=== PATIENT | female | born 1975 | race Caucasian/White ===

== ENCOUNTER 2019-05-17 14:29 | Inpatient (IN) | payer OTHER ==
[~2019-05-17] VITALS: Ht 175.3 cm; Wt 72.6 kg
[~2019-05-17 14:29] MED LIST: ALBUTEROL; BUPR150T12 PO; PROVENTIL; SINGULAIR
[2019-05-17 14:46] VITALS: BP 118/67
--- NOTE | 2019-05-17 14:55 | NUR ---
44 Y/O F PRESENTS TO ER C/O SHORTNESS OF BREATH SINCE SATURDAY. PT WAS SEEN AT URGENT CARE ON 05/07/19 WAS WAS PRESCRIBED ANTIBIOTICS AND BREATHING TREATMENTS. PER PT SHE HAS BEEN USING HER ALBUTEROL INHALER Q 30 MIN AND NEBULIZER TX WITHOUT ANY RELIEF. PT RESPIRATIONS ARE EVEN AND LABORED. BREATHE SOUNDS BILATERALLY WHEEZING THROUGHOUT WITH DRY COUGH. PT O2 SATURATION 99% ON RA. ALLERGIES: NKA. MED HX: ASTHMA AND SEIZURE DISORDER. SAFETY MEASURES IN PLACE. SEIZURE PRECAUTIONS IMPLEMENTED: HOB ELEVATED, BED IN LOWEST POSITION, PADDED BED RAILS UP X2. ERMD MADE AWARE OF PT STATUS.
--- NOTE | 2019-05-17 14:55 | NUR ---
PT AMB TO BED 8
[2019-05-17] MEDS ORDERED: methylPREDNISolone SS 125 MG/2 ML VIAL IVP ONE (15:20)
[2019-05-17] MEDS ORDERED: ALBUTEROL 0.083% 2.5 MG/3 ML NEBU INH ONE ×2 (15:20)
[2019-05-17] MEDS ORDERED: IPRATROPIUM 0.02% 0.5 MG/2.5 ML NEBU INH ONE (15:20)
--- NOTE | 2019-05-17 15:30 | NUR ---
OUT OF ROOM IN RADIOLOGY CARRIAGE SETTER TOATTEMPT [facility] THERAPY AND RESPIRATORY DRUGS AT A LATER TIME
--- NOTE | 2019-05-17 15:36 | NUR ---
[facility] THERAPY AND RESPIRATORY DRUGS GIVEN ORDERED
[2019-05-17 16:46] LABS: BASOPHILS # (AUTO) 0.1 K/uL (0.00-0.22); BASOPHILS % (AUTO) 0.9 % (0.0-2.0); EOSINOPHILS % (AUTO) 0.3 % (0.0-4.0); HEMATOCRIT 36.8 % (36-48); HEMOGLOBIN 11.9 g/dL (12.0-16.0); LYMPHOCYTES # (AUTO) 1.4 K/uL (2.5-16.5); LYMPHOCYTES % (AUTO) 17.5 % (20.5-51.1); MEAN CORPUSCULAR HEMOGLOBIN 33 pg (27-31); MEAN CORPUSCULAR HGB CONC 32 g/dL (33-37); MEAN CORPUSCULAR VOLUME 101.5 fL (80-94); MONOCYTES # (AUTO) 0.3 K/uL (0.8-1.0); MONOCYTES % (AUTO) 3.7 % (1.7-9.3); NEUTROPHILS # (AUTO) 6.4 K/uL (1.8-7.7); NEUTROPHILS % (AUTO) 77.6 % (42.2-75.2); PLATELET COUNT (AUTO) 416 K/uL (140-450); RED BLOOD CELL COUNT(AUTO) 3.62 MIL/uL (4.20-5.40); RED CELL DISTRIBUTION WIDTH 16.2 % (11.6-13.7); WHITE BLOOD COUNT (AUTO) 8.2 K/uL (4.8-10.8)
[2019-05-17 16:52] LABS: CARBON DIOXIDE 22.9 mmol/L (21-32); CREATININE 0.9 mg/dL (0.6-1.3); POTASSIUM 3.9 mmol/L (3.5-5.1)
--- NOTE | 2019-05-17 17:00 | NUR ---
PT RESTING IN BED. VSS. MOTHER AT BEDSIDE. WILL CONTINUE TO MONITOR.
[2019-05-17] MEDS ORDERED: MONT10TA35 PO ×2 (17:17→19:05)
[2019-05-17] MEDS ORDERED: GABA400C PO (17:17)
[2019-05-17] MEDS ORDERED: QUET25TA PO ×2 (17:17→19:05)
[2019-05-17] MEDS ORDERED: TOPI50TA PO ×2 (17:17→19:05)
[2019-05-17] MEDS ORDERED: QUET300T1 PO ×2 (17:17→19:05)
[2019-05-17] MEDS ORDERED: ACAM333T PO ×2 (17:17→19:05)
[2019-05-17] MEDS ORDERED: ESK300 PO ×2 (17:17→19:05)
[2019-05-17] MEDS ORDERED: BUS5 PO ×2 (17:17→19:05)
[2019-05-17] MEDS ORDERED: LEVE500T9 PO ×2 (17:17→19:05)
[2019-05-17] MEDS ORDERED: ONDANSETRON 4 MG/2 ML VIAL IM/IVP PRN (17:35)
[2019-05-17] MEDS ORDERED: ACETAMINOPHEN 325 MG TAB PO PRN (17:35)
[2019-05-17] MEDS ORDERED: ALBUTEROL SULFATE/IPRATROPIU 3 ML SOL IH PRN (17:35)
[2019-05-17] MEDS ORDERED: MORPHINE SULFATE 2 MG/ML SYR IVP PRN (17:35)
[2019-05-17] MEDS ORDERED: HYDROcodone/APAP 5/325 MG 1 TAB TAB PO PRN (17:35)
--- NOTE | 2019-05-17 17:50 | NUR ---
PT EATING DINNER MEAL PROVIDED BY FOOD AND NUTRITION
[2019-05-17] MEDS ORDERED: ALBUTEROL SULFATE/IPRATROPIU 3 ML SOL IH SCH (18:00)
--- NOTE | 2019-05-17 18:12 | NUR ---
TRANSFER OF CARE AND REPORT GIVEN TO CATIA ESQUIVEL
--- NOTE | 2019-05-17 18:12 | NUR ---
Patient will be admitted to care of DR. MCDONOUGH. Admited to MED SURGE. Will go to room 105A. Belongings list completed. Report to CATIA ESQUIVEL.
[2019-05-17 18:14] LABS: MAGNESIUM 2.1 mg/dL (1.8-2.4); PHOSPHORUS 4.2 mg/dL (2.5-4.9); THYROID STIMULATING HORMONE 1.06 uIU/mL (0.34-3.74)
--- NOTE | 2019-05-17 18:15 | NUR ---
RECEIVED PT FROM ED NURSE CORNELIO. PT IS AWAKE AND ALERT, AMBULATORY AND ABLE TO MAKE NEEDS KNOWN. APPEARS TO BE IN SOME RESPIRATORY DISTRESS, LUNG SOUNDS ARE WHEEZY. NO C/O PAIN. IV SITE IS ON THE R FOOT, 22 G. PT PLACED ON TELEMETRY. RAILS PADDED FOR HX OF SEIZURES. VS UPON ADMIT: BP 110/64, HR 86, O2 93% ON ROOM AIR, TEMP 97.8, RR 20. PT WAS ADVISED TO WEAR A HOSPITAL GOWN, BUT SHE STATES THAT SHE IS UNCOMFORTABLE IN A GOWN. CALL LIGHT GIVEN WITHIN REACH. PT CURRENTLY FINISHING EATING DINNER.
[2019-05-17 18:34] LABS: APPEARANCE,URINE CLEAR (CLEAR); BILIRUBIN,URINE NEGATIVE (NEGATIVE); BLOOD, URINE NEGATIVE (NEGATIVE); COLOR,URINE YELLOW (YELLOW); LEUKOCYTE ESTERASE ,URINE NEGATIVE (NEGATIVE); NITRITE, URINE NEGATIVE (NEGATIVE); PH,URINE 7.5 (5.0-9.0); UGLUCOSE NEGATIVE (NEGATIVE)
--- NOTE | 2019-05-17 18:35 | NUR ---
PT SEEN BY DR FELICIANO
[2019-05-17 18:37] LABS: BARBITURATE, URINE NEG. ng/ml (NEG <=200); BENZODIAZEPINE, URINE NEG. ng/mL (NEG <=200); CANNABINOID, URINE NEG. ng/mL (NEG <=50); COCAINE, URINE NEG. ng/mL (NEG <=300); OPIATE, URINE NEG. ng/mL (NEG <=2000); PHENCYCLIDINE SCREEN,URINE NEG. ng/mL (NEG <=25)
--- NOTE | 2019-05-17 18:40 | NUR ---
PT PLACED ON 2L O2 NC FOR SOB.
[2019-05-17] MEDS ORDERED: ACAMPROSATE CALCIUM 333 MG PO SCH (19:05)
--- NOTE | 2019-05-17 19:28 | NUR ---
PT ENDORSED TO OBSTETRICS TEACHER NURSE IN STABLE CONDITION.
--- NOTE | 2019-05-17 19:29 | NUR ---
RECEIVED BEDSIDE REPORT FORM DAY SHIFT NURSE ALVIN RN, PT STABLE, NO DISTRESS NOTED, IV TO R FOOT 22G, PATENT INTACT, INFUSING WELL PT ON 2LPM O2 VIA NC, PT STATED HAVING TROUBLE BREATHING , RT CALLED, PT O2 SATURATION IS 97% ON 2LPM O2 VIA NC, INITIAL ASSESSMENT DONE, ALL SFAETY PRECAUTION ,MET, CALL LIGHT WITHIN REACH, WILL CONTINUE TO MONITOR.
[2019-05-17 19:42] LABS: PROTHROMBIN TIME 9.3 secs (10.8-13.4)
[2019-05-17 20:00] VITALS: BP 112/73
--- NOTE | 2019-05-17 20:00 | NUR ---
WENT TO CHECK ON PATIENT REGARDING SHORTNESS OF BREATH. PATIENT STABLE AND ALERT NO RESP DISTRESS AT THIS TIME. ABG DONE AND SPUTUM COLLECTED. EKG DONE W CATIA HORNE AT BEDSIDE. ABG RESULTS READ TO DR CHAU. PATIENT FIO2 INCREASE TO 3L NC AND ADJUSTMENTS MADE TO FREQ OF BREATHING TREATMENTS. PATIENT SPO2 98 HEART RATE 76 AT THIS TIME NO RESP DISTRESS NOTICED.
[2019-05-17] MEDS ORDERED: cefTRIAXone 1,000 MG VIAL ONE (20:55)
[2019-05-17] MEDS ORDERED: NON-FORMULARY ITEM (Levetiracetam* (Keppra Xr*) 750 MG) PO SCH (21:00)
[2019-05-17] MEDS: MONTELUKAST SODIUM 10 MG TAB PO SCH (21:06)
[2019-05-17] MEDS: methylPREDNISolone SS 125 MG/2 ML VIAL IVP SCH (21:08)
[2019-05-17] MEDS: NACL 0.9% 1,000 ML IV SCH (21:08)
--- NOTE | 2019-05-17 21:10 | NUR ---
PT PULLED OUT IV WHEN WALKING TO RESTROOM, NEW IV INSERTED TO R WRIST 24G, PATENT INTACT, INFUSING WELL, OLD IV OUT, CATH INTACT. PT RESTING, NO DISTRESS NOTED, CALL LIGHT WITHIN REACH.
[2019-05-17] MEDS: QUEtiapine FUMARATE 100 MG TAB PO SCH (21:32)
[2019-05-17] MEDS: GABAPENTIN 100 MG CAP PO SCH (21:32)
[2019-05-17] MEDS: TOPIRAMATE 25 MG TAB PO SCH (21:33)
[2019-05-17] MEDS: LITHIUM CARBONATE 300 MG TAB PO SCH (21:39)
[2019-05-17] MEDS: busPIRone 5 MG TAB PO SCH (21:40)
--- NOTE | 2019-05-17 21:40 | NUR ---
DUE MEDICATION ADMINISTERED, PT TOLERATED WELL, NO DISTRESS NOTED, CALL LIGHT WITHIN REACH, WILL CONTINUE TO MONITOR.
[2019-05-18] VITALS: BP 101/67
--- NOTE | 2019-05-18 00:09 | NUR ---
CHECKED ON PT, PT SLEEPING, V/S TAKEN, WNL, CALL LIGHT WITHIN REACH, WILL CONTINUE TO MONITOR.
--- NOTE | 2019-05-18 02:29 | NUR ---
PT SLEEPING, NO DISTRESS NOTED, CALL LIGHT WITHIN REACH, WILL CONTINUE TO MONITOR.
[2019-05-18] MEDS ORDERED: LEVE750T3 PO (03:10)
[2019-05-18 04:00] VITALS: BP 122/80
--- NOTE | 2019-05-18 04:20 | NUR ---
CHECKED ON PT, PT SLEEPING, NO DISTRESS NOTED, CALL LIGHT WITHIN REACH, V/S TAKEN, WILL CONTINUE TO MONITOR.
[2019-05-18] MEDS: methylPREDNISolone SS 125 MG/2 ML VIAL IVP SCH ×2 (05:20→13:07)
[2019-05-18 06:54] LABS: BASOPHILS % (AUTO) 0.2 % (0.0-2.0); HEMATOCRIT 39.2 % (36-48); HEMOGLOBIN 12.6 g/dL (12.0-16.0); LYMPHOCYTES % (AUTO) 13.9 % (20.5-51.1); MEAN CORPUSCULAR HEMOGLOBIN 33 pg (27-31); MEAN CORPUSCULAR HGB CONC 32 g/dL (33-37); MEAN CORPUSCULAR VOLUME 101.8 fL (80-94); MONOCYTES # (AUTO) 0.2 K/uL (0.8-1.0); MONOCYTES % (AUTO) 2.6 % (1.7-9.3); NEUTROPHILS # (AUTO) 5.9 K/uL (1.8-7.7); NEUTROPHILS % (AUTO) 83.3 % (42.2-75.2); PLATELET COUNT (AUTO) 449 K/uL (140-450); RED BLOOD CELL COUNT(AUTO) 3.86 MIL/uL (4.20-5.40); RED CELL DISTRIBUTION WIDTH 16.3 % (11.6-13.7); WHITE BLOOD COUNT (AUTO) 7.1 K/uL (4.8-10.8)
--- NOTE | 2019-05-18 07:00 | NUR ---
RECEIVED REPORT FROM PUBLISHER ASSISTANT NURSE. PATIENT IS AWAKE IN BED, SITTING UP. PATIENT IS FULL CODE, ALLERGIES TO NSAIDS AND ASPIRIN. AAOX4, CURRENTLY SATTING 96% ON ROOM AIR. PT HAS AN IV TO RIGHT WRIST 22G WITH NS INFUSING AT 100 ML/HR. PATIENT HAS WHEEZING TO UPPER AND LOWER LOBES. WILL CONTINUE WITH PLAN OF CARE FOR THE DAY
[2019-05-18] MEDS: ALBUTEROL SULFATE/IPRATROPIU 3 ML SOL IH SCH ×4 (07:18→19:51)
[2019-05-18 07:24] LABS: ANION GAP 17.1 (8-16); CARBON DIOXIDE 20.5 mmol/L (21-32); CREATININE 0.7 mg/dL (0.6-1.3); POTASSIUM 4.6 mmol/L (3.5-5.1)
[2019-05-18 07:36] LABS: MAGNESIUM 2.1 mg/dL (1.8-2.4); PHOSPHORUS 4.5 mg/dL (2.5-4.9)
[2019-05-18 07:38] LABS: CHOL/HDL RATIO 2.7 (1-4.5)
[2019-05-18] MEDS: NACL 0.9% 1,000 ML IV SCH ×2 (07:38→14:45)
--- NOTE | 2019-05-18 07:39 | NUR ---
ENDORSED PT TO DAY SHIFT NURSE RENETTA BARDALES, PT STABLE, NO DISTRESS NOTED, CALL LIGHT WITHIN REACH.
[2019-05-18 08:00] VITALS: BP 128/81
[2019-05-18] MEDS ORDERED: ACETYLCYSTEINE 10% (100 MG/ML) 100 MG/ML VIAL INH SCH ×3 (08:00→12:06)
[2019-05-18] MEDS ORDERED: AZITHROMYCIN 250 MG TAB PO SCH (09:00)
--- NOTE | 2019-05-18 09:00 | NUR ---
ADMINISTERED MORNING MEDICATION. PATIENT TOLERATED WELL. PATIENT IS SITTING UP IN BED. NO COMPLAINTS AT THIS TIME.
[2019-05-18] MEDS: LITHIUM CARBONATE 300 MG TAB PO SCH ×3 (09:04→16:18)
[2019-05-18] MEDS: QUEtiapine FUMARATE 25 MG TAB PO SCH (09:04)
[2019-05-18] MEDS: busPIRone 5 MG TAB PO SCH ×3 (09:05→16:18)
[2019-05-18] MEDS: GABAPENTIN 100 MG CAP PO SCH ×4 (09:05→20:39)
[2019-05-18] MEDS: TOPIRAMATE 25 MG TAB PO SCH ×2 (09:06→20:32)
[2019-05-18] MEDS: levETIRAcetam 500 MG TAB PO SCH ×2 (09:06→20:31)
[2019-05-18] MEDS: LACTOBACILLUS RHAMNOSUS GG 1 EACH CAP PO SCH (09:07)
[2019-05-18 12:00] VITALS: BP 116/63
--- NOTE | 2019-05-18 12:23 | NUR ---
PATIENT EXPRESSED UNHAPPINESS WITH HER BREAKFAST THIS MORNING. INFORMED PATIENT THAT I CAN CALL AND ORDER A SANDWICH. PATIENT DENIED AND STATED THAT SHE WANTED TO WALK TO THE [employer] TO PURCHASE FOOD. INFORMED PATIENT THAT UNFORTUNATELY SHE CANNOT LEAVE [facility] WHILE BEING A PATIENT HERE ON THE FLOOR. PATIENT VERBALIZED UNDERSTANDING.
--- NOTE | 2019-05-18 13:19 | NUR ---
PATIENT HAS BEEN SCREENED AND CATEGORIZED LOW NUTRITION RISK. PATIENT WILL BE SEEN WITHIN 7 DAYS OF ADMISSION. 05/24/[address]
--- NOTE | 2019-05-18 14:30 | NUR ---
ADMINISTERED ATIVAN IVP PRN FOR ANXIETY.
[2019-05-18] MEDS ORDERED: LORazepam 2 MG/ML VIAL IM/IVP PRN (14:55)
[2019-05-18 16:00] VITALS: BP 129/79
--- NOTE | 2019-05-18 19:28 | NUR ---
RECEIVED PT FROM AM NURSE RAFITA, PT AWAKE, ALERT ORIENTED X 4, AMBULATORY, NO RESPIRATORY DISTRESS AT THIS TIME. PT HAS NO LINE W/NS 100 ML NOT INFUSING. PER PREVIOUS NURSE, 3X ATTEMPT IV INSERTION DURING THE DAY SHIFT. WILL TRY TO INSERT AN IV LINE. DISCUISSED POC. PLACED ON LOW BED POSITION, CALL LIGHT W/IN REACH WILL KEEP WATCH FOR ASTHMA EXACERBATION
[2019-05-18] MEDS: ACETYLCYSTEINE 10% (100 MG/ML) 100 MG/ML VIAL INH SCH (19:51)
[2019-05-18 20:00] VITALS: BP 121/85
[2019-05-18] MEDS: MONTELUKAST SODIUM 10 MG TAB PO SCH (20:32)
[2019-05-18] MEDS: QUEtiapine FUMARATE 100 MG TAB PO SCH (20:32)
--- NOTE | 2019-05-18 20:40 | NUR ---
ATTEMPTED TO INSERT AN IV LINE BUT FAILED, WILL INFORM DR. MONROE
[2019-05-18] MEDS ORDERED: predniSONE 20 MG TAB PO ONE (20:50)
--- NOTE | 2019-05-18 20:52 | NUR ---
GOT AN ORDER FROM DR. MONROE TO START PO PREDNISONE; AND SEE [place] IF PT STILL HAS NO LINE, PROBABLY DO PICC IF NOT TOLERATING P.O OR IF NOT DISCHARGED Addendum: 05/18/19 at 2115 by Apolonia Reynolds RN AMEND TO JUST ONE TIME DOSE OF ORAL PREDNISONE. WILL STILL CONTINUE THE IV PREDNISONE, IF CAN GET A LINE TONIGHT FOR TOMORROW'S IV PREDNISONE
[2019-05-18] MEDS: methylPREDNISolone SS 40 MG/ML VIAL IVP SCH (21:00)
--- NOTE | 2019-05-18 23:26 | NUR ---
PT SLEEPING AT THIS TIME, PT 02 SAT AT 90% ON RA.ENDORSED TO CHARGE NURSE, ROHIT FOR CONTINUITY OF CARE.
[2019-05-19] VITALS: BP 124/76
--- NOTE | 2019-05-19 00:27 | NUR ---
REPORT RECEIVED FROMRK BARDALES.PT IS IN STABLE CONDITION.HR IS SR.NO C/O PAIN .RESP.UNLABORED IN RA.
[2019-05-19] MEDS: NACL 0.9% 1,000 ML IV SCH (00:45)
[2019-05-19 04:00] VITALS: BP 120/79
--- NOTE | 2019-05-19 04:00 | NUR ---
SLEEPING W/O S/S OF ANY DISTRESS.HR IS SB/SA .WILL MONITOR PT.
[2019-05-19] MEDS: methylPREDNISolone SS 40 MG/ML VIAL IVP SCH (05:00)
[2019-05-19] MEDS: ACETYLCYSTEINE 10% (100 MG/ML) 100 MG/ML VIAL INH SCH (06:49)
[2019-05-19 07:07] LABS: T4 (THYROXINE) 5.4 ug/dL (4.5-12.0)
[2019-05-19 07:15] LABS: BASOPHILS % (AUTO) 0.4 % (0.0-2.0); HEMATOCRIT 37.9 % (36-48); HEMOGLOBIN 12.2 g/dL (12.0-16.0); LYMPHOCYTES # (AUTO) 2.3 K/uL (2.5-16.5); LYMPHOCYTES % (AUTO) 19.4 % (20.5-51.1); MEAN CORPUSCULAR HEMOGLOBIN 33 pg (27-31); MEAN CORPUSCULAR HGB CONC 32 g/dL (33-37); MEAN CORPUSCULAR VOLUME 100.7 fL (80-94); MONOCYTES # (AUTO) 0.5 K/uL (0.8-1.0); MONOCYTES % (AUTO) 4.1 % (1.7-9.3); NEUTROPHILS % (AUTO) 76.1 % (42.2-75.2); PLATELET COUNT (AUTO) 464 K/uL (140-450); RED BLOOD CELL COUNT(AUTO) 3.76 MIL/uL (4.20-5.40); RED CELL DISTRIBUTION WIDTH 16.1 % (11.6-13.7); WHITE BLOOD COUNT (AUTO) 11.8 K/uL (4.8-10.8)
--- NOTE | 2019-05-19 07:31 | NUR ---
PT HAS NO IV LINE DUE TO TATTOO ON BOTH ARMS. RESIDENT AND RESIDENT AWARE.CONDITION STABLE.REPOTR GIVEN TO LIZETTE BARDALES.
[2019-05-19 07:32] LABS: ANION GAP 15.2 (8-16); CREATININE 0.8 mg/dL (0.6-1.3); POTASSIUM 4.2 mmol/L (3.5-5.1)
--- NOTE | 2019-05-19 07:32 | NUR ---
RECEIVED BEDSIDE REPORT FROM FURNACE PROCESS PLANT OPERATOR NURSE FOR CONTINUITY OF CARE. PATIENT AWAKE AND AMBULATING AROUND HER ROOM AT THIS TIME. PATIENT IS AAOX4. PATIENT DENIED PAIN, SOB AND DIZZINESS. RESPIRATION EVEN AND UNLABORED ON RA. NO SIGNS OF DISTRESS NOTED. NO IV ESTABLISHED AT THIS TIME AND MD AWARE. SKIN INTACT AND CLEAN. PATIENT IS CONTINENT AND ABLE TO AMBULATE WITH STEADY GAIT. DISCUSSED PLAN OF CARE WITH PATIENT AND PATIENT VERBALIZED UNDERSTANDING. TELE MONITOR ATTACHED. SAFETY MEASURES IN PLACE. BED IN LOW POSITION AND CALL LIGHT WITHIN REACH. INSTRUCTED PATIENT TO USE THE CALL LIGHT FOR ANY ASSISTANCE AND PATIENT WAS AWARE.
[2019-05-19 07:41] LABS: MAGNESIUM 2.1 mg/dL (1.8-2.4); PHOSPHORUS 4.1 mg/dL (2.5-4.9)
[2019-05-19 08:00] VITALS: BP 132/87
[2019-05-19] MEDS ORDERED: AZITHROMYCIN 250 MG TAB PO SCH (09:00)
--- NOTE | 2019-05-19 09:00 | NUR ---
INFORMED PATIENT THAT SHE WILL BE DC TODAY AND PATIENT WAS AWARE. PER PATIENT, SHE WILL CONTACT HER FRIEND TO FIND OUT WHAT TIME TO BENCH MOLDER. NO SIGNS OF DISTRESS NOTED. SAFETY MEASURES IN PLACE. BED IN LOW POSITION AND CALL LIGHT WITHIN REACH. INSTRUCTED PATIENT TO USE THE CALL LIGHT FOR ANY ASSISTANCE AND PATIENT WAS AWARE.
[2019-05-19] MEDS: GABAPENTIN 100 MG CAP PO SCH (09:23)
[2019-05-19] MEDS: levETIRAcetam 500 MG TAB PO SCH (09:23)
[2019-05-19] MEDS: TOPIRAMATE 25 MG TAB PO SCH (09:24)
[2019-05-19] MEDS: LACTOBACILLUS RHAMNOSUS GG 1 EACH CAP PO SCH (09:24)
[2019-05-19] MEDS: LITHIUM CARBONATE 300 MG TAB PO SCH (09:24)
[2019-05-19] MEDS: QUEtiapine FUMARATE 25 MG TAB PO SCH (09:25)
[2019-05-19] MEDS: busPIRone 5 MG TAB PO SCH (09:25)
--- NOTE | 2019-05-19 09:27 | NUR ---
ADMINISTERED MEDS PER MD ORDER, PATIENT TOLERATED WELL. MEDS EDUCATION PROVIDED TO PATIENT AND PATIENT VERBALIZED UNDERSTANDING. PATIENT IS AWAKE AND RESTING ON BED. AWAITING FOR RIDE FOR DC. NO SIGNS OF DISTRESS NOTED. REMOVED TELE MONITOR AND RETURNED TO INJECTION MOLDING ENGINEER. SAFETY MEASURES IN PLACE. BED IN LOW POSITION AND CALL LIGHT WITHIN REACH. INSTRUCTED PATIENT TO USE THE CALL LIGHT FOR ANY ASSISTANCE AND PATIENT WAS AWARE.
--- NOTE | 2019-05-19 09:50 | NUR ---
PET STYLIST FOUND A NOTE IN PATIENT'S ROOM. PATIENT ELOPED AND TOOK ALL HER BELONGINGS. NOTIFIED DR ARELLANO AND PROVIDED A COPY OF PATIENT'S HANDWRITTEN NOTED. DR ARELLANO WAS AWARE.
[2019-05-19] MEDS ORDERED: METH4TAB3 PO (10:03)
[2019-05-19] MEDS ORDERED: ACAMPROSATE CALCIUM 333 MG PO SCH (10:15)
== END 2019-05-19 10:00 | disposition left against medical advice (07) | DRG 189 ==
LOC: MED 14:29 → MTU 17:35 → UNDODISIN 05-19 10:00
PROVIDERS: ADMIT General Practice; ATTEND General Practice
DX: J96.01 Acute respiratory failure with hypoxia (principal); J45.901 Unspecified asthma with (acute) exacerbation; F31.9 Bipolar disorder, unspecified; G40.909 Epilepsy, unspecified, not intractable, without status epilepticus; F41.9 Anxiety disorder, unspecified; E86.0 Dehydration; J44.9 Chronic obstructive pulmonary disease, unspecified; Z82.5 Family history of asthma and other chronic lower respiratory diseases; Z79.899 Other long term (current) drug therapy; Z80.1 Family history of malignant neoplasm of trachea, bronchus and lung; Z87.891 Personal history of nicotine dependence
CPT/HCPCS: 36415; 36600; 71046; 80048; 80305; 81003; 82803; 83036; 83735; 83880; 84100; 84436; 84443; 85025; 85610; 85730; 87070; 87081; 87205; 89220; 93005; 94640; 96374; 99285; J0696; J2060; J2920; J2930; J7030; J7060; J7512; J7613; J7620; J7644

== ENCOUNTER 2020-03-14 19:53 | Emergency (ER) | payer OTHER, MEDICAID ==
[~2020-03-14] VITALS: Ht 172.7 cm; Wt 74.8 kg
[~2020-03-14 19:53] MED LIST changes: +ACAM333T PO; -ALBUTEROL; -BUPR150T12 PO; +BUS5 PO; +ESK300 PO; +GABA400C PO; +LEVE750T3 PO; +METH4TAB3 PO; +MONT10TA35 PO; -PROVENTIL; +QUET25TA PO; +QUET300T1 PO; -SINGULAIR; +TOPI50TA PO
[2020-03-14 19:59] VITALS: BP 130/80
--- NOTE | 2020-03-14 20:00 | NUR ---
ERMD ASSESSING PT.
--- NOTE | 2020-03-14 20:05 | NUR ---
PT TAKEN TO BED 8 VIA YANCI
--- NOTE | 2020-03-14 20:10 | NUR ---
pt was uncooperative and refused to allow equipment to monitor vital signs
--- NOTE | 2020-03-14 20:16 | NUR ---
Patient discharged with v/s stable. Written and verbal after care instructions given and explained. Patient verbalized understanding. Ambulatory with steady gait. All questions addressed prior to discharge. Advised to follow up with PMD. Pt provided with homeless resources, meal, and bus pass.
== END 2020-03-14 20:16 | disposition home or self-care (01) ==
LOC: MED 19:53
DX: F10.129 Alcohol abuse with intoxication, unspecified (principal); R45.1 Restlessness and agitation; J44.9 Chronic obstructive pulmonary disease, unspecified; Z79.899 Other long term (current) drug therapy
CPT/HCPCS: 99281

== ENCOUNTER 2020-03-14 23:50 | Emergency (ER) | payer OTHER, MEDICAID ==
[~2020-03-14] VITALS: Ht 172.7 cm; Wt 74.8 kg
[2020-03-14 23:50] VITALS: BP 138/92
--- NOTE | 2020-03-14 23:50 | NUR ---
JESSICA ALLISON, PREBOOK. TAKEN TO CHAIR A
--- NOTE | 2020-03-15 00:05 | NUR ---
ERMD ASSESSING PT.
--- NOTE | 2020-03-15 00:15 | NUR ---
PT ASSESSED, TREATED, AND D/C PT. NO NURSING INTERVENTION NEEDED. OK TO BOOK.
[2020-03-15 00:20] VITALS: BP 138/92
--- NOTE | 2020-03-15 00:20 | NUR ---
Patient discharged with v/s stable. Written and verbal after care instructions given and explained. Patient verbalized understanding. In custody with [place] [employer]. All questions addressed prior to discharge. Advised to follow up with PMD. PAPERWORK GIVEN TO [facility] #[id number]
== END 2020-03-15 00:20 ==
LOC: MED 23:50
DX: F10.129 Alcohol abuse with intoxication, unspecified (principal); R45.1 Restlessness and agitation; J44.9 Chronic obstructive pulmonary disease, unspecified; F20.9 Schizophrenia, unspecified; Z79.899 Other long term (current) drug therapy; Z85.89 Personal history of malignant neoplasm of other organs and systems; Z02.89 Encounter for other administrative examinations
CPT/HCPCS: 99283